=== PATIENT | female | born 1995 | race Caucasian/White ===

== ENCOUNTER 2017-06-16 00:25 | Emergency (ER) | payer MEDICAID ==
[2017-06-16] MEDS ORDERED: DIPHENHYDRAMINE HCL 50 MG/ML VIAL ONE (00:31)
[2017-06-16] MEDS ORDERED: METHYLPREDNISOLONE INJ 125 MG/2 ML SDV ONE (00:31)
[2017-06-16] MEDS ORDERED: EPINEPHRINE INJ/PF 1 MG/1 ML AMPULE ONE (00:31)
[2017-06-16] MEDS ORDERED: FAMOTIDINE INJ/PF 20 MG/2 ML SDV IV ONE ×2 (00:32→01:43)
--- NOTE | 2017-06-16 00:41 | ER Document Report ---
ED General - General Chief Complaint: Allergic Reaction Stated Complaint: POSSIBLE ALLERGIC REACTION Time Seen by Provider: 06/16/17 00:40 Notes: Patient is a 21-year-old female without past medical history, currently taking TMP-SMX for a urinary tract infection for the past 4 days who presents with acute onset of facial swelling, tongue swelling and difficulty breathing. The symptoms started approximately 1 hour prior to arrival and of gotten progressively worse since that time. Nothing improves or worsens her symptoms. She denies any history of similar symptoms in the past. She has not had any complications with this medication until today although she is uncertain of whether or not this is the trigger for her symptoms today. She has no prior history of anaphylaxis. History is otherwise limited secondary to the acuity of patient's presentation. TRAVEL OUTSIDE OF THE [place] IN LAST 30 DAYS: No - Related Data Allergies/Adverse Reactions: Penicillins Allergy (Verified 10/14/11 17:39) Past Medical History - General Information source: Patient - Social History Smoking Status: Never Smoker Frequency of alcohol use: None Drug Abuse: None Lives with: Spouse/Significant other Family History: Reviewed & Not Pertinent Pulmonary Medical History: Reports: Hx Asthma - Immunizations Immunizations up to date: Yes Review of Systems - Review of Systems Notes: Constitutional: Negative for fever. HENT: Negative for sore throat. Eyes: Negative for visual changes. Cardiovascular: Negative for chest pain. Respiratory: Positive for shortness of breath. Gastrointestinal: Negative for abdominal pain, vomiting or diarrhea. Genitourinary: Negative for dysuria. Musculoskeletal: Negative for back pain. Skin: Positive for urticaria Neurological: Negative for headaches, weakness or numbness. 10 point ROS negative except as marked above and in HPI. Physical Exam - Vital signs Vitals: Resp BP Pulse Ox 19 146/71 H 100 06/16/17 00:31 06/16/17 00:31 06/16/17 00:31 Interpretation: Hypertensive, Tachycardic Notes: PHYSICAL EXAMINATION: GENERAL: Appears uncomfortable, flushed, diaphoretic HEAD: Atraumatic, normocephalic. EYES: Pupils equal round and reactive to light, extraocular movements intact, sclera anicteric, conjunctiva are normal. ENT: nares patent, tongue is moderately enlarged, posterior oropharynx with slight edema and erythema but uvula remains midline, no stridor NECK: Normal range of motion, supple without lymphadenopathy LUNGS: Breath sounds clear to auscultation bilaterally and equal. No wheezes rales or rhonchi. HEART: Regular tachycardia without murmurs ABDOMEN: Soft, nontender, normoactive bowel sounds. No guarding, no rebound. No masses appreciated. EXTREMITIES: Normal range of motion, no pitting or edema. No cyanosis. NEUROLOGICAL: No focal neurological deficits. Moves all extremities spontaneously and on command. PSYCH: Anxious SKIN: Warm, Dry, normal turgor, urticaria over the bilateral forearms Course - Re-evaluation Re-evalutation: 06/16/17 00:40 Patient presents with signs concerning for a possible acute anaphylactic reaction with urticaria, facial swelling and difficulty breathing. She arrives tachycardic and hypertensive. I immediately went to see the patient upon her arrival. An IV was established. 0.5 mg of IM epinephrine was administered. IV fluids, Solu-Medrol, famotidine all were administered. She has been placed on slate handler and will continue to be reassessed frequently as of her presentation is concerning for acute anaphylaxis. 06/16/17 01:21 Patient's facial swelling, tongue swelling and dyspnea have all resolved. Her urticaria has likewise resolved. She remains slightly tachycardic likely secondary to epinephrine administration. Will continue to monitor closely. 06/16/17 01:42 Patient continues to feel much improved, states all symptoms have completely resolved at this time. She does remain tachycardic again I suspect this is secondary to the epinephrine administration. - Vital Signs Vital signs: Temp Pulse Resp BP Pulse Ox 98.6 F 19 104/57 L 100 06/16/17 00:55 06/16/17 00:32 06/16/17 01:01 06/16/17 01:01 Critical Care Note - Critical Care Note Total time excluding time spent on procedures (mins): 37 Comments: Critical care time spent obtaining history from patient or surrogate, discussions with consultants, development of treatment plan with patient or surrogate, evaluation of patient's response to treatment, examination of patient , ordering and performing treatments and interventions, ordering and review of laboratory studies, re-evaluation of patient's condition, ordering and review of radiographic studies and review of old charts Discharge - Discharge Clinical Impression: Anaphylaxis Qualifiers: Encounter type: initial encounter Qualified Code(s): T78.2XXA - Anaphylactic shock, unspecified, initial encounter Condition: Good Disposition: HOME, SELF-CARE Additional Instructions: IF YOU DEVELOP DIFFICULTY BREATHING, RETURN OF HIVES, VOMITING, LIGHTHEADEDNESS , GIVE YOURSELF THE EPINEPHRINE SHOT IMMEDIATELY AND CALL 911. NEVER HESITATE TO GIVE YOURSELF THE EPINEPHRINE THIS CAN SAVE YOUR LIFE IF YOU ARE HAVE A SERIOUS ALLERGIC REACTION. Please also follow-up with your primary care doctor for consideration of allergy testing. Prescriptions: Epinephrine [Epipen Jr 0.15 mg/0.3 mL AutoInject] 1 ea IM ASDIR PRN #1 autoinjector PRN Reason:
[2017-06-16] MEDS ORDERED: DIPHENHYDRAMINE HCL 50 MG/ML VIAL IV ONE (01:43)
[2017-06-16] MEDS ORDERED: METHYLPREDNISOLONE INJ 125 MG/2 ML SDV IV ONE (01:43)
[2017-06-16] MEDS ORDERED: LORAZEPAM INJ 2 MG/1 ML VIAL IV ONE (01:43)
[2017-06-16] MEDS ORDERED: EPINEPHRINE INJ/PF 1 MG/1 ML AMPULE IM ONE (01:43)
[2017-06-16 03:41] VITALS: BP 105/64
--- NOTE | 2017-06-16 10:17 | EKG REPORT ---
SEVERITY:- BORDERLINE ECG - SINUS TACHYCARDIA BORDERLINE T ABNORMALITIES, INFERIOR LEADS : Confirmed by: Kye Sheldon 16-Jun-2017 10:15:59
== END 2017-06-16 02:55 | disposition home or self-care (01) ==
LOC: ER 00:25
DX: T78.2XXA Anaphylactic shock, unspecified, initial encounter (principal); R22.0 Localized swelling, mass and lump, head; R06.02 Shortness of breath; R00.0 Tachycardia, unspecified; R03.0 Elevated blood-pressure reading, without diagnosis of hypertension; L50.9 Urticaria, unspecified; Z88.0 Allergy status to penicillin; X58.XXXA Exposure to other specified factors, initial encounter
CPT/HCPCS: 93005; 99291; 96372; 96374; 96375; 93010; J1200; J0171; J2930; J2060; S0028

== ENCOUNTER → 2019-03-22 | Outpatient (CLI) | payer BC | LOC: OD 08:44 | PROVIDERS: ATTEND Family Medicine | DX: Z02.0 Encounter for examination for admission to educational institution (principal); Z53.8 Procedure and treatment not carried out for other reasons ==

== ENCOUNTER → 2019-03-28 | Outpatient (CLI) | payer BC ==
[2019-03-29 14:18] LABS: HEPATITIS B SURFACE AB QUAL Non Reactive (.)
[2019-03-30 08:02] LABS: MUMPS IGG AB <9.0 AU/mL (Immune >10); RUBEOLA IGG AB >300.0 AU/mL (Immune >29)
[2019-03-30 08:03] LABS: RUBELLA IGG AB 2.21 index (Immune >0.); VARICELLA ZOSTER IGG AB 458 index (Immune >16)
== END ==
LOC: OD 11:01
PROVIDERS: ATTEND Family Medicine
DX: Z02.0 Encounter for examination for admission to educational institution (principal)
CPT/HCPCS: 36415; 86706; 86735; 86762; 86765; 86787

== ENCOUNTER → 2019-06-15 | Outpatient (CLI) | payer BC, OTHER ==
--- NOTE | 2019-06-15 17:04 | RADIOLOGY REPORT (SQ) ---
EXAM DESCRIPTION: CT HEAD COMBO COMPLETED DATE/TIME: 06/15/2019 2:58 pm REASON FOR STUDY: G43.109 MIGRAINE WITH AURA, NOT INTRACTABLE, W/O STATUS MIGRAINOSUS G43.109 MIGRA INE WITH AURA, NOT INTRACTABLE, W/O STATUS MIGR COMPARISON: None. TECHNIQUE: Axial images acquired through the brain without and with intravenous contrast. Images re viewed with bone, brain and subdural windows. Additional sagittal and coronal reconstructions were g enerated. Images stored on PACS. All CT scanners at this facility use dose modulation, iterative reconstruction, and/or weight based d osing when appropriate to reduce radiation dose to as low as reasonably achievable (ALARA). [facility]: Dose Right [facility]: CareDose [facility]: Dose Right [facility]: Teradose 4D [facility]: Gura Gear CONTRAST TYPE AND DOSE: contrast/concentration: Isovue 350.00 mg/ml; Total Contrast Delivered: 50.0 ml; Total Saline Delivered: 55.0 ml RENAL FUNCTION: None required. The patient is less than 50 years old. RADIATION DOSE: CT Rad equipment meets quality standard of care and radiation dose reduction techniq ues were employed. CTDIvol: 48.6 - 48.7 mGy. DLP: 1811 mGy-cm.. LIMITATIONS: None. FINDINGS: VENTRICLES: Normal size and contour. CEREBRUM: No masses. No hemorrhage. No midline shift. Normal vaughan/white matter differentiation. No ev idence for acute infarction. No enhancing lesions. CEREBELLUM: No masses. No hemorrhage. No alteration of density. No evidence for acute infarction. No enhancing lesions. EXTRA-AXIAL SPACES: No fluid collections. No enhancing lesions. ORBITS AND GLOBE: No intra- or extraconal masses. Normal contour of globe without masses. CALVARIUM: No fracture. PARANASAL SINUSES: There are mucous retention cysts in the right maxillary sinus. SOFT TISSUES: No mass or hematoma. OTHER: No other significant finding. IMPRESSION: Right maxillary sinus disease with no acute intracranial imaging finding. EVIDENCE OF ACUTE STROKE: NO. TECHNICAL DOCUMENTATION: JOB ID: [id number] Quality ID # [id number]: Final reports with documentation of one or more dose reduction techniques (e.g., Au tomated exposure control, adjustment of the mA and/or kV according to patient size, use of iterative reconstruction technique) 2010 [employer]- All Rights Reserved Reading location - IP/workstation name: [email or web address]
== END ==
LOC: RAD 14:03
PROVIDERS: ATTEND Family Medicine Geriatric Medicine
DX: G43.109 Migraine with aura, not intractable, without status migrainosus (principal); J34.1 Cyst and mucocele of nose and nasal sinus
CPT/HCPCS: 70470

== ENCOUNTER → 2019-10-22 | Outpatient (CLI) | payer BC, OTHER ==
[2019-10-22 08:27] LABS: ABSOLUTE BASOPHILS # (AUTO) 0.1 10^3/uL (0.0-0.2); ABSOLUTE EOSINOPHILS # (AUTO) 0.1 10^3/uL (0.0-0.6); ABSOLUTE LYMPHOCYTES (AUTO) 2.7 10^3/uL (0.5-4.7); ABSOLUTE MONOCYTES (AUTO) 0.7 10^3/uL (0.1-1.4); ABSOLUTE NEUT (AUTO) 5.8 10^3/uL (1.7-8.2); BASOPHILS % (AUTO) 0.6 % (0-2); EOSINOPHILS % (AUTO) 0.6 % (0-6); HEMATOCRIT 43.5 % (36.0-47.0); HEMOGLOBIN 14.6 g/dL (12.0-15.5); MEAN CORPUSCULAR HEMOGLOBIN 29.4 pg (27.0-33.4); MEAN CORPUSCULAR HGB CONC 33.5 g/dL (32.0-36.0); MEAN CORPUSCULAR VOLUME 88 fl (80-97); MONOCYTES % (AUTO) 7.1 % (3-13); PLATELET COUNT 286 10^3/uL (150-450); RED BLOOD COUNT 4.97 10^6/uL (3.72-5.28); RED CELL DISTRIBUTION WIDTH 13.7 % (11.5-14.0); SEGMENTED NEUTROPHILS % (AUTO) 62.7 % (42-78); TOTAL CELLS COUNTED % (AUTO) 100 %; WHITE BLOOD COUNT 9.2 10^3/uL (4.0-10.5)
[2019-10-22 09:03] LABS: ALKALINE PHOSPHATASE 59 U/L (38-126); ANION GAP 10 (5-19); ASPARTATE AMINO TRANSFERASE 30 U/L (14-36); BILIRUBIN,DIRECT 0.3 mg/dL (0.0-0.4); BILIRUBIN,TOTAL 0.5 mg/dL (0.2-1.3); BLOOD UREA NITROGEN 10 mg/dL (7-20); CALCIUM 10.1 mg/dL (8.4-10.2); CARBON DIOXIDE 22 mmol/L (22-30); CHLORIDE 107 mmol/L (98-107); GLUCOSE 127 mg/dL (75-110); TOTAL PROTEIN 7.3 g/dL (6.3-8.2); TRIGLYCERIDES 123 mg/dL (<150)
[2019-10-22 09:15] LABS: DIRECT LDL 140 mg/dL (<100)
[2019-10-22 09:16] LABS: POTASSIUM 4.4 mmol/L (3.6-5.0)
== END ==
LOC: OD 07:37
PROVIDERS: ATTEND Family Medicine Geriatric Medicine
DX: G43.109 Migraine with aura, not intractable, without status migrainosus (principal); J34.1 Cyst and mucocele of nose and nasal sinus; E66.01 Morbid (severe) obesity due to excess calories; Z79.899 Other long term (current) drug therapy
CPT/HCPCS: 36415; 80053; 80061; 84443; 85025

== ENCOUNTER → 2019-11-08 | Outpatient (CLI) | payer BC, OTHER | LOC: OD 08:37 | PROVIDERS: ATTEND Family Medicine Geriatric Medicine | DX: R73.9 Hyperglycemia, unspecified (principal) | CPT/HCPCS: 36415; 82947; 82950; 83036 ==

== ENCOUNTER → 2019-11-09 | Outpatient (CLI) | payer BC, OTHER ==
--- NOTE | 2019-11-11 12:27 | RADIOLOGY REPORT (SQ) ---
EXAM DESCRIPTION: MRI HEAD COMBO COMPLETED DATE/TIME: 11/09/2019 6:54 pm REASON FOR STUDY: G43.109 MIGRAINE WITH AURA, NOT INTRACTABLE, W/O STATUS MIGRAINOSUS G43.109 MIGRA INE WITH AURA, NOT INTRACTABLE, W/O STATUS MIGR R51 HEADACHE COMPARISON: None. TECHNIQUE: Multiplanar imaging includes noncontrasted T1, T2, FLAIR, diffusion with ADC map and post gadolinium contrast T1 sequences. Images stored on PACS. CONTRAST TYPE AND DOSE: 20 mL Dotarem. RENAL FUNCTION: Not indicated. ACR Type II contrast agent associated with few, if any, unconfounded cases of NSF LIMITATIONS: None. FINDINGS: ANATOMY: No anomalies. Normal vascular flow voids. Pituitary fossa normal. CSF SPACES: Normal in size and contour. No hemorrhage. CEREBRUM: Sulci and gyri normal in size and contour. Normal white matter signal on FLAIR imaging. No evidence of hemorrhage, mass, or extraaxial fluid collection. No abnormal enhancement post contrast. POSTERIOR FOSSA: No signal alteration. No hemorrhage. No edema, masses, or mass effect. Internal enrique tory canals, cerebellopontine angles, mastoids normal. No enhancing lesions. No abnormal enhancement post contrast. DIFFUSION IMAGING: Negative for acute or subacute infarction. ORBITS: No masses. Globes normal. PARANASAL SINUSES: No fluid levels. Mucosa normal. OTHER: No other significant finding. IMPRESSION: Normal brain. EVIDENCE OF ACUTE STROKE: NO. TECHNICAL DOCUMENTATION: JOB ID: [id number] [employer]- All Rights Reserved Reading location - IP/workstation name: [email or web address]
== END ==
LOC: RAD 17:51
PROVIDERS: ATTEND Pediatrics
DX: G43.109 Migraine with aura, not intractable, without status migrainosus (principal)
CPT/HCPCS: 70553; A9576